=== PATIENT | male | born 1995 | race Caucasian/White ===

== ENCOUNTER 2019-10-03 07:09 | Emergency (ER) | payer SELFPAY ==
[2019-10-03] MEDS ORDERED: HYDROcodone/Acetaminophen 5/325 mg Tablet ONE (08:32)
== END 2019-10-03 08:50 | disposition home or self-care (01) ==
LOC: ERS 07:09
DX: S82.891D Other fracture of right lower leg, subsequent encounter for closed fracture with routine healing (principal); Z76.0 Encounter for issue of repeat prescription; F17.210 Nicotine dependence, cigarettes, uncomplicated; J45.909 Unspecified asthma, uncomplicated; V29.9XXD Motorcycle rider (driver) (passenger) injured in unspecified traffic accident, subsequent encounter
CPT/HCPCS: 99283